=== PATIENT | female | born 1990 | race Caucasian/White ===

== ENCOUNTER 2025-06-12 11:32 | Outpatient (AMB) | payer BC, SELFPAY ==
--- NOTE | 2025-06-12 11:34 | A.OFFPC_ITS ---
Vital Signs 06/12/25 11:40 Height 5 ft 3 in Weight 115 lb 4 oz BMI 20.4 BP 102/66 Blood Pressure Location Lt brachial Position Sitting Respiration 12 Pulse 62 Pulse Source Pulse Oximeter Temp 97.2 F Temp Source Oral Pulse Oximetry (%) 98 Oxygen Delivery Method Room Air Intake Visit Reasons: Cyst right shoulder Intake Note: New patient to establish care. Patient c/o cyst on right shoulder x 3 times. Bill Collector Required: No Allergies No Known Allergies Allergy (Verified 06/12/25 11:35) Medication List - Last Reviewed 06/12/25 by Randy Huddleston MA norethindrone-e.estradiol-iron 1 mg-20 mcg (21)/75 mg (7) (10/02 ()) 1 tab PO DAILY Tobacco use date assessed: 06/12/25 Dental Screening Dental Screen Date: 06/12/25 Did you have a dental visit in the last 12 months?: Yes Did you have a dental problem in the last 6 months where you did not have access to dental care?: No Was dental information given to patient?: Patient has dentist HPI HPI Comments History of Present Illness Details 35 y/o F with palpitations, fhx of breas t ca Social: Dtr Mary (18mo), lives w/ , 2 cats. 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 MGM breast ca postmenopausal; PGM alzheimers; PGF ; Health Maintenance Tdap 2023 Flu 06/12/25 Pap [facility] History of Present Illness The patient is a 35 year old female presenting with establishment of care and for CPE. No records; no pcp care in years Supraventricular Tachycardia (SVT): - Palpitations noted during . - Occasional episodes cont, self limitin g. - EKG done; suspected lifelong SVT. Was tx as exercise induced asthma. Denies syncope or collapse. Monitors HR w smart watch. - No systematic follow-up; cost concerns for care management cyst R shoulder - Hard, enlarging neck lump (3-month dur ation). - Family history non-cancerous cyst in s ister. Past Surgical History - Section Family History - Father with hypertension. - Mother with high cholesterol. - Paternal grandmother had Alzheimer's d isease. - Maternal grandmother had breast cancer due to hormone therapy, non-hereditary. - Maternal grandfather had cancer (locat ion unspecified). Social History - Lives with and father, one truong vega (98-oyjzv-ums daughter). 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 - Daughter stays with maternal grandpare nts in [place] during work trips. - Safe home environment; owns two cats. - No significant family medical history from sibling Review of Systems - Cardiovascular: Reports occasional pal pitations. - Respiratory: Denies current asthma sym ptoms. - Dermatology: Reports cyst on neck, no discharge or pain. - General: Denies feeling faint or weak. - Immunizations: Received Tdap; flu shot administered today. Physical Exam General: Well developed, well nourished, in no acute distress. Appears stated age. Head: Normocephalic, atraumatic. Eyes: Pupils are equal, round and reactive to light and accommodation. Conjunctivae are clear. Scleras nonicteric bilat. Vision grossly normal. Ears: TMs clear AU, EACS WNL Nose: Patent, without discharge. Neck: No carotid bruit bilat. Supple, no adenopathy or thyromegaly. A dermoid cyst noted R posterior shoulder Breast: Edu on SBE Lungs: Clear to auscultation bilaterally. No rales, rhonchi or wheeze noted. Good air flow in all baltazar. Heart: Regular rate and rhythm. No murmurs, click, rubs or gallops are noted. Abdomen: Bowel sounds present in all quadrants. The abdomen is soft, nontender, with no masses or organomegaly noted. No hernias are noted. : Deferred. 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 Extremities: No clubbing, cyanosis nor edema is noted. Neurologic: Gait and station normal. Cranial Nerves 2-12 intact. Motor strength grossly symmetrical and intact. No sensory loss. Balance normal. Skin: No rashes, ulcers, or lesions noted. Turgor is good. Skin color is good. Hair and nails are without abnormalities. Psych: Normal eye contact, affect and mood appropriate, and normal interactions. Patient is alert and appropriate to context. Results Pending Discussion Notes Patient and I discussed the occasional palpitations suggestive of Supraventricular Tachycardia (SVT) which had been suspected during her following an EKG. We considered the burden of SVT and potential interventions, weighing the necessity of Holter monitoring and echocardiography to investigate the electrical and structural cardiac findings. We also discussed her concerns about the cost and affordability of these diagnostics and explored options of utilizing insurance or dispatch associate referrals. For the dermoid cyst on her neck, we discussed the benign nature of the cyst and the benefits of surgical excision before it enlarges further. Information on how to engage through the patient portal was provided, facilitating streamlined communication for any follow-up concerns. Consent was verbally obtained for both the flu vaccine and potential diagnostics. Patient was given time to ask questions. All questions were answered to their satisfaction. Assessment and Plan 1. Supraventricular Tachycardia (SVT) - defer Holter monitor d/t cost- use [employer] rt watch; echocardiography based on cost assessment. - if too costly, send message and i will cancel and refer to cards. - check labs 2. Dermoid cyst - Refer for surgical removal; monitor cy st until surgery. 3 HM: flu shot and labs Patient Instructions - Follow up with insurance for coverage on Holter monitor and echocardiogram. - Contact office via the [facility] portal if testing is cost-prohibitive. - Schedule and attend general surgery co nsultation for cyst removal. - Return for labs if unable to complete today. - Continue usual activities but track an y palpitations or unusual symptoms. - Use portal for any non-urgent communic ation with our office. - RTO 1 year CPE, sooner as needed. Consent Patient was informed and verbally consented to the use of an ambient scribe for clinic note documentation during this visit. An additional 20 minutes was spent addressing the problem(s) noted at todays visit. This includes time spent before the visit reviewing the chart, time spent during the visit, and time spent after the visit on documentation reviewing laboratory results, diagnostic imaging, medications, performing a medically necessary evaluation, counseling on diagnoses, care coordination, ordering appropriate tests, ordering appropriate medications, review of tests performed by other providers, reporting test results with the patient, communication with other healthcare providers. [facility] Medical History (Updated 06/12/25 @ 12:16 by STEPHON Fuller) Palpitations Surgical History (Updated 06/12/25 @ 11:43 by Randy Huddleston MA) Previous section Family History (Updated 06/12/25 @ 11:45 by Randy Huddleston MA) Father HTN (hypertension) Social History (Updated 06/12/25 @ 11:42 by Randy Huddleston MA) Household Members: Spouse and Children Both parents involved: No Caregiver staying overnight: No Housing: House Are you a primary attending ambulatory care to a significant other at home: Yes Do you presently have visiting nurse or other home services: No 75 years or older and lives alone: No Alcohol intake: current Alcohol intake frequency: a few times a month Patient Tobacco Use Status: Never used Tobacco e-Cigarette/Vaping Use: Never Used Second Hand Smoke Exposure: No service: No Current occupational status: employed 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 1. Little interest or pleasure in doing things: not at all 2. Feeling down, depressed, or hopeless: not at all 3. Trouble falling or staying asleep, or sleeping too much: not at all 4. Feeling tired or having little energy: not at all 5. Poor appetite or overeating: not at all 6. Feeling bad about yourself - or that you are a failure or have let yourself or your family down: not at all 7. Trouble concentrating on things, such as reading the newspaper or watching television: not at all 8. Moving or speaking so slowly that other people could have noticed. Or the opposite - being so fidgety or restless that you have been moving around a lot more than usual: not at all 9. Thoughts that you would be better off or of hurting yourself in some way: not at all Total score: 0 Depression Screening Interpretation: Negative Depression Screening Done: Yes 70014 - PHQ-9 Billing: Yes Source: Developed by Drs. Jayce Gamboa, Corry Odonnell, Kleber Hamilton and colleagues, with an educational perico from [employer]. Thrive Questionnaire Date Thrive assessed: 06/12/25 I am a: Patient What is your living situation today?: I have a steady place to live Within the past 12 months, did the food you bought not last and you didn't have the money to get more?: Never true Within the past 12 months, did you worry whether your food would run out before you got money to buy more?: Never true Do you have trouble paying for medicines?: No Do you have trouble getting transportation to medical appointments?: No Do you have trouble paying your heating and electricity bill?: No Do you have trouble taking care of your child, family member or friend?: No Do you have trouble with day-to-day activities such as bathing, preparing meals, shopping, managing finances, etc.?: No Are you currently unemployed and looking for a job?: No Are you interested in more education?: No Please select the resources that you would like help with: None Currently or been in a relationship where the following occur: No concerns reported THRIVE Score: 0 AUDIT C Alcohol Use Questionnaire (AUDIT-C) 1. How often do you have a drink containing alcohol?: 2-4 times a month 2. How many drinks containing alcohol do you have on a typical day when you are drinking?: 1 or 2 3. How often do you have six or more drinks on one occasion?: Less than monthly Total Score: 3 Score Reviewed/Action Taken: Yes MINNA-7 AMB Questionnaire MINNA-7 Date MINNA - 7 assessed: 06/12/25 Feeling nervous, anxious, or on edge: 1 = Several days Not being able to stop or control worryin = Several days Worrying too much about different things: 0 = Not at all Trouble relaxin = Not at all Being so restless that it is hard to sit still: 0 = Not at all Becoming easily annoyed or irritable: 0 = Not at all Feeling afraid as if something awful might happen: 0 = Not at all Total MINNA-7 score (0-4 normal; 5-9 mild; 10-14 moderate; 15-21 severe): 2 Source: Developed by Drs. Jayce Gamboa, Corry Odonnell, Kleber Hamilton and colleagues, with an educational perico from [employer]. MINNA-7 Assessment Billing MINNA-7 Assessment Tool: MINNA-7 Assessment 32212 Physical exam (Primary Care) Vital Signs: Last Vital Signs Temp 97.2 F 06/12/25 11:40 Pulse 62 06/12/25 11:40 Resp 12 06/12/25 11:40 BP 102/66 06/12/25 11:40 Pulse Ox 98 06/12/25 11:40 Oxygen Delivery Method Room Air 06/12/25 11:40 BMI result Body Mass Index 20.4 Tobacco/Smoking Status: Tobacco use Status Tobacco use date assessed 06/12/25 06/12/25 11:38 Patient Tobacco Use Status Never used Tobacco 06/12/25 11:42 e-Cigarette/Vaping Use Never Used 06/12/25 11:42 PHQ-9: PHQ-9 Score PHQ-9: Total score 0 06/12/25 12:00 Depression Screening Interpretation: Negative Thrive Assessment: Date of Thrive Assessment Date Thrive assessed 06/12/25 06/12/25 11:38 Currently or been in a relationship where the following occur: No concerns reported Office Procedures Flu Questionnaire Does the patient have a severe egg allergy?: No Does the patient have severe life threatening allergies?: No Does the patient have a fever or illness today?: No Has the patient ever had Guillain-[place] Syndrome?: No Has the patient ever had any past reaction to a flu shot?: No Immunizations Fluarix [id number] (PF) 45 mcg (15 mcg x 3)/0.5 mL IM syringe Performing Provider: STEPHON Fuller Performing Location: [facility] Administered by: Randy Huddleston MA on 06/12/25 12:23 Dose Route Admin Location Dispensed Lot Number Expiration Date NDC [employer] 0.5 mL IM Right Deltoid 0.5 mL [id number] 03/12/26 [id number] [employer]SM[employer] VIS Given Date VIS Provided VIS Publication Date 06/12/25 Single Vaccine 24 Eligibility Eligibility Date Funding Source Not [facility] Eligible 06/12/25 Private Coding Level of Care Code New Pt Level 2 (20636) New Pt Prev Care 18-39yr(53706 Diagnoses Encounter to establish care with new provider Z76.89 Palpitations R00.2 Laboratory exam ordered as part of routine general medical examination Z00.00 Epidermoid cyst of skin of back L72.0 Influenza vaccination administered at current visit Z23 Encounter for general adult medical examination without abnormal findings Z00.00 Additional Codes MINNA-7 Assessment Billing - MINNA-7 Assessment Tool: MINNA-7 Assessment 85747 ([id number]) PHQ-9 - 44946 - PHQ-9 Billing: Yes ([id number]) Assessment & Plan Assessment & Plan (1) Encounter to establish care with new provider: Code(s): Z76.89 - Persons encountering health services in other specified circumstances (2) Palpitations: Code(s): R00.2 - Palpitations Category: Medical (3) Laboratory exam ordered as part of routine general medical examination: Code(s): Z00.00 - Encounter for general adult medical examination without abnormal findings Category: Medical (4) Epidermoid cyst of skin of back: Code(s): L72.0 - Epidermal cyst Category: Medical (5) Influenza vaccination administered at current visit: Code(s): Z23 - Encounter for immunization Category: Medical (6) Encounter for general adult medical examination without abnormal findings: Code(s): Z00.00 - Encounter for general adult medical examination without abnormal findings Category: Medical Plan . Orders: Orders CA echo transthoracic complete Today R00.2 - Palpitations Complete Blood Count no Diff Today R00.2 - Palpitations, Z00.00 - Encounter for general adult medical examination without abnormal findings Comprehensive Met. Panel Today R00.2 - Palpitations, Z00.00 - Encounter for general adult medical examination without abnormal findings Hemoglobin A1c Today R00.2 - Palpitations, Z00.00 - Encounter for general adult medical examination without abnormal findings Lipid Panel Today R00.2 - Palpitations, Z00.00 - Encounter for general adult medical examination without abnormal findings Vitamin D 25-OH Total Today R00.2 - Palpitations, Z00.00 - Encounter for general adult medical examination without abnormal findings TSH reflex Free T4 Today R00.2 - Palpitations, Z00.00 - Encounter for general adult medical examination without abnormal findings Vitamin B12 and Folate Today R00.2 - Palpitations, Z00.00 - Encounter for general adult medical examination without abnormal findings Influenza [id number] Immunization Today Z23 - Encounter for immunization Referrals General Surgery Referral L72.0 - Epidermal cyst Patient Instructions: Walk-In Care (Urgent Care): We Make it Easy Walk-in for urgent medical issues such as: ? Seasonal Allergies ? Insect Bites ? Cough ? Diarrhea ? Acute Asthma Attacks ? Back, Knee or Joint Pain ? Ear Infection ? Fever without a Rash ? Headaches ? Nausea ? [place] Eye, Rash or Skin Irritation ? Sore Throat ? Sports Physicals ? Vomiting Most insurances are accepted. Patients do not need to be part of the [facility] to seek care at the walk-in clinic. Locations [address] [place] [address] Open Wednesday through Wednesday 8am-5pm *Hours may vary due to staffing availability. To confirm Walk-In Care hours please call. [address] [place] [address] ? [phone] [facility] [place] provides services to ages 18 and over. Open Wednesday-Wednesday: 7 a.m. to 5 p.m. and Wednesday: 9 a.m. to 3 p.m.* *Hours may vary due to staffing availability. To confirm Walk-In Care hours in [place], please call [phone]. [address] [place] [address] ? [phone] [facility] [place] provides services to ages 12 and over. Open Wednesday-Wednesday: 8 a.m. to 5 p.m. Hours may vary due to staffing availability. To confirm Walk-In Care hours in [place], please call [phone]. LABORATORY SERVICES: [facility] ? Primary Location [address] [place] [address] Wednesday through Wednesday 6:00 AM ? 5:00 PM Wednesday 7:00 AM ? 11:00 AM* [phone] The [facility] is centrally located near the front entrance of the [facility] for easy outpatient access. Convenient parking is provided for outpatients. *Hours may vary due to staffing availability. To confirm Laboratory hours for any location, please call [phone]. Offsite Location For your convenience, we offer offsite laboratory draw stations at the following locations: [address] [place] [address] ? [facility] [address], [address] Wednesday through Wednesday 7:30 AM ? 1:00 PM* [phone] *Hours may vary due to staffing availability. To confirm Laboratory hours for any location, please call [phone]. [place] ? [address] Wednesday through Wednesday 6:00 AM ? 3:30 PM* Wednesday 6:30 AM ? 3 PM* [phone] *Hours may vary due to staffing availability. To confirm Laboratory hours for any location, please call [phone]. [address] [facility] Wednesday through Wednesday 7:30 AM ? 4:00 PM* [phone] *Hours may vary due to staffing availability. To confirm Laboratory hours for any location, please call [phone] [place] [address] Wednesday through 9:00 AM ? 4:00 PM* *Hours may vary due to staffing availability. To confirm Laboratory hours for any location, please call [phone]. Appointments are not necessary. Walk-ins are welcome. Like all the departments throughout the [facility], our Lab undergoes frequent reviews to ensure the quality and accuracy of test results, and our staff takes special pride in its status as a nationally accredited facility. Patient Portal: [facility] ONE PATIENT. ONE RECORD. BETTER CARE. [facility] has a fully integrated, cutting- edge mobile electronic health information system that has revolutionized the way we care for our patients and manage our organization. This system improves communication and coordination enabling us to provide safe, higher-quality care, and an overall positive experience for staff and patients. Our first priority, as always, is to deliver the highest quality care possible. The system is running in the background supporting that priority. This portal is for all [facility] and [facility] services and practices. If you are experiencing any technical difficulties with enrolling or logging into the Patient Portal please complete the [facility] Patient Portal Technical Support Form. [facility] now offers a new secure on-line interactive tool for patients to review their health information ? ?Patient Portal. This interactive web portal will enable patients and their families to take an active role in their care by providing easy, secure access to their health information via the internet. The Patient Portal provides patients with instant access to their health information, including laboratory results, medications, allergies, demographic information, visit history, and more. In addition to managing their own care, parents and health care proxies with authorized consent will appreciate the ability to access the records of those individuals for whom they provide care. Please note: if you wish to gain access (Proxy) to another patient?s portal, you will be required to come to the Medical Records Department in person at [facility]. Both the patient giving proxy access and the proxy will need to provide photo identification and complete the appropriate authorization. The Patient Portal also allows track their appointments online. The [facility] Patient Portal also saves patients time by allowing them to submit updates to their demographic and contact information prior to their visits. Portal email notifications will also alert patients to any new activity on their portal, such as test results and new appointments. In order to initially enroll in the [facility] Patient Portal, you will need to enter some required information including the following: * your [facility] Medical Record number * your personal home email address * name * date of Please note: In order to enroll in the [facility] Patient Portal, we need to have your email address on file in your electronic medical record. ?The email address needs to be specific for one person (yourself) in order for your Portal enrollment to be successful. ?You can update your email address in person with our Registration staff when you are registering for a hospital visit. ?Otherwise, you will need to come to the Health Information Management (Medical Records) Department at [facility]. ?We are open from Wednesday ? Wednesday from 7:30 a.m. ? 4:30 p.m. ?You will be required to present a photo id. Once you have successfully enrolled in the Patient Portal, you will receive a one-time user id and password for the Portal, sent to your email address. ?This will allow you to log into the Patient Portal within 99 hrs and reset your own logon id and password, and define personal security questions. ?Once your p ermanent login and password have been set, you can log into the [facility] Patient Portal at any time via the blue button above or from the Portal Logon button on any page of the [facility] website. [facility] and [facility] encourage all of our patients to enroll in Patient Portal as it presents a valuable opportunity for patients and their families to actively participate in their care and stay healthy Welcome to [facility]. ?We look forward to working with you. Health screenings for women You should visit your health care provider from time to time, even if you are healthy. The purpose of these visits is to: Screen for medical issues Assess your risk for future medical problems Encourage a healthy lifestyle Update vaccinations and other preventive care services Help you get to know your provider in case of an illness Information Even if you feel fine, you should still see your provider for regular checkups. These visits can help you avoid problems in the future. For example, the only way to find out if you have high blood pressure is to have it checked regularly. High blood sugar and high cholesterol levels also may not have any symptoms in the early stages. A simple blood test can check for these conditions. There are specific times when you should see your provider or receive specific health screenings. The [place] Preventive Services Task Force publishes a list of recommended screenings. Below are screening guidelines for women ages 18 to 39. BLOOD PRESSURE SCREENING Your blood pressure should be checked at least once every 3 to 5 years if: Your blood pressure is in the normal range (top number less than 120 mm Hg and bottom number less than 80 mm Hg) You don't have risk factors for high blood pressure Ask your provider if you need your blood pressure checked more often if: The top number is 120 to 129 mm Hg or the bottom number is 70 to 79 mm Hg You have diabetes, heart disease, kidney problems, are overweight, or have certain other health conditions You have a first-degree relative with high blood pressure You are Black You had high blood pressure during a If the top number is 130 mm Hg or greater or the bottom number is 80 mm Hg or greater, this is considered stage 1 hypertension. Schedule an appointment with your provider to learn how you can reduce your blood pressure. Watch for blood pressure screenings in your area. Ask your provider if you can stop in to have your blood pressure checked. BREAST CANCER SCREENING Experts do not agree about the benefits of breast self-exams in finding breast cancer or saving lives. Talk to your provider about what is best for you. A screening mammogram is not recommended for most women under age 40. Your provider may discuss and recommend mammograms, MRI scans, or ultrasounds if you have an increased risk for breast cancer, such as: A mother or sister who had breast cancer at a young age (most often starting screening earlier than the age the close relative was diagnosed) You carry a high-risk genetic marker CERVICAL CANCER SCREENING Cervical cancer screening should start at age 21 years unless your provider advises otherwise. After the first test: Women ages 21 through 29 should have a Pap test every 3 years. Exoprts do not agree on whether HPV testing is recommended for this age group. Women ages 30 through 65 should be screened with either a Pap test every 3 years or the HPV test every 5 years or both tests every 5 years (called cotesting ). Women who have been treated for precancer (cervical dysplasia) should continue to have Pap tests for 20 years after treatment or until age 65, whichever is longer. If you have had your uterus and cervix removed (total hysterectomy), and you have not been diagnosed with cervical cancer or precancer (high grade cervical neoplasia), you do not need cervical cancer screening. CHOLESTEROL SCREENING Cholesterol screening should begin at: Age 45 for women with no known risk factors for coronary heart disease Age 20 for women with known risk factors for coronary heart disease Repeat cholesterol screening should take place: Every 5 years for women with normal cholesterol levels More often if changes occur in lifestyle (including weight gain and diet) More often if you have diabetes, heart disease, kidney problems, or certain other conditions DIABETES SCREENING You should be screened for diabetes starting at age 35 and then repeated every 3 years if you have no risk factors for diabetes. Screening may need to start earlier and be repeated more often if you have other risk factors for diabetes, such as: You have a first degree relative with diabetes. You are overweight or have obesity. You have high blood pressure, prediabetes, or a history of heart disease. Screening for diabetes should be done if you are planning to become and you are overweight and have other risk factors such as high blood pressure. DENTAL EXAM Go to the dentist once or twice every year for an exam and cleaning. Your dentist will evaluate if you need more frequent visits. EYE EXAM Have an eye exam every 5 to 10 years before age 40. If you have vision problems, have an eye exam every 2 years or more often if recommended by your provider. You should have an eye exam that includes an examination of your retina (back of your eye) at least every year if you have diabetes. IMMUNIZATIONS Commonly needed vaccines include: Flu shot: get one every year. COVID-19 vaccine: ask your provider what is best for you. Tetanus-diphtheria and acellular pertussis (Tdap) vaccine: have one at or after age 19 as one of your tetanus-diphtheria vaccines if you did not receive it as an adolescent. Tetanus-diphtheria: have a booster (or Tdap) every 10 years. Varicella vaccine: receive 2 doses if you never had chickenpox or the varicella vaccine. Hepatitis B vaccine: receive 2, 3, or 4 doses, depending on your exact circumstances. Measles, mumps, and rubella (MMR) vaccine: receive 1 to 2 doses if you are not already immune to MMR. Your provider can tell you if you are immune. Ask your provider about the human papillomavirus (HPV) vaccine if: You have not received the HPV vaccine in the past You have not completed the full vaccine series (you should catch up on this shot) Ask your provider if you should receive other immunizations if you have certain health problems that increase your risk for some diseases such as pneumonia. INFECTIOUS DISEASE SCREENING Women who are sexually active should be screened for chlamydia and gonorrhea up until age 25. Women 25 years and older should be screened for chlamydia and gonorrhea if at high risk. Screening for hepatitis C: All adults ages 18 to 79 should get a one-time test for hepatitis C. people should be screened at every . Screening for human immunodeficiency virus (HIV): All people ages 15 to 65 should get a one-time test for HIV. Depending on your lifestyle and medical history, you may also need to be screened for infections such as syphilis and HIV, as well as other infections. PHYSICAL EXAM All adults should visit their provider from time to time, even if they are healthy. The purpose of these visits is to: Screen for disease Assess your risk of future medical problems Encourage a healthy lifestyle Update your vaccinations and other preventive care services Maintain a relationship with a provider in case of an illness Your height, weight, and BMI should be checked at every exam. During your exam, your provider may ask you about: Depression and anxiety Diet and exercise Alcohol and tobacco use Safety issues, such as using seat belts, smoke detectors, and intimate partner violence Your medicines and risk for interactions SKIN SELF-EXAM Your provider may check your skin for signs of skin cancer, especially if you're at high risk, such as if you: Have had skin cancer before Have close relatives with skin cancer Have a weakened immune system OTHER SCREENING Talk with your provider about colon cancer screening if you have a strong family history of colon cancer or polyps, or if you have had inflammatory bowel disease or polyps yourself. Routine bone density screening of women under 40 is not recommended.
[2025-06-12 11:40] VITALS: BP 102/66; PULSE 62; RESP 12; TEMP 36.2; O2SAT 98; BMI 20.4
--- OUTSIDE RECORDS SUMMARY | 2025-06-12 12:59 | XMS_ITS | Clinical Summary ---
Author Organization [facility] ity Address [address] [place] [address] Care Team Providers Care Customer Service Consultant Name Role Phone Akilah Hannah MD Primary Care Pr ovider Allergies No known active allergies Medications ibuprofen (ADVIL,MOTRIN) 600 mg tablet Take 1 Tablet by mouth every 6 hours as needed for Pain for up to 30 days. 4 Active magnesium glycinate 100 mg magnesium capsule Take by mouth. Active vit no.124/iron/folic ( VITAMIN ORAL) Take 1 Tablet by mouth daily. Active aspirin 81 mg chewable tablet Take 1 Tablet by mouth daily for 360 days. 3 Active Junel FE 10/02, 28, 1 mg-20 mcg (21)/75 mg (7) per tabletIndications: Encounter for surveillance of contraceptive pills TAKE 1 TABLET BY MOUTH EVERY DAY 84 tablet 2 5 Active Immunizations Immunization Administration Dates Next Due HPV, Quadrivalent 02/17/2008,10/17/2007,08/11/20 07 Influenza Quadravalent, MDCK , 0.5ml, preservative free (Flucelvax) 6mo and older 07/08/2023 Influenza trivalent, 0.5mL, preservative free (Fluarix; FluLaval; Fluzone) ages 6mo and older (Afluria) 3 years and older 08/11/2007 [facility] SARS-CoV-2 COVID -19, vector-nr, rS-Ad26, preservative free 08/27/2021,01/01/2021 Meningococcal MCV4P 08/04/2006 Tdap Tetanus diptheria acell ular pertussis (Boostrix; Adacel) 7yo and older 11/26/2023,08/11/2007 Surgical History Surgery Date Site/Laterality Comments OTHER SURGICAL HISTORY PROCEDURE: DENIES PREVIOUS SURGERY Medical History Medical History Date Comments Patient denies medical problems DX:Patient denies medical problems Family History Medical History Relation Name Comments Hypertension Father Breast cancer Maternal Grandmother BRCA n eg, dx after 60, COPD Colon cancer Neg Hx Ovarian cancer Neg Hx Pancreatic cancer Neg Hx Uterine cancer Neg Hx Relation Name Status Comments Father Alive Maternal Grandfather Maternal Grandmother Mother Alive Paternal Grandfather Paternal Grandmother Sister Alive Social History Tobacco Use Types Packs/Day Years Used Date Smoking Tobacco: Never Smokeless Tobacco: Never Alcohol Use Standard Drinks/Week Comments Not Currently 0 (1 standard drink = 0.6 oz pur e alcohol) Comments Unknown Sex and Gender Information Value Date Recorded Sex Assigned at Not on file Legal Sex Female 1:08 PM EST Gender Identity Not on file Sexual Orientation Not on file Obstetrics History Last Filed Vital Signs Vital Sign Reading Time Taken Comments Blood Pressure 113/64 02/29/2024 8:40 AM EDT Pulse 56 02/29/2024 8:40 AM EDT Temperature - - Respiratory Rate - - Oxygen Saturation - - Inhaled Oxygen Concentration - - Weight 59.3 kg (130 lb 12.8 oz) 02/29/2024 8:40 AM EDT Height 160 cm (5' 3 ) 12/29/2023 1:05 PM EDT Body Mass Index 23.17 12/29/2023 1:05 PM EDT Plan of Treatment Health Maintenance Due Date Last Done Comments Hepatitis B Vaccines (1 of 3 - 19+ 3-dose series) 01/17/2011 Social Influencers of Health Screening 08/22/2022 Depression Screening 09/13/2024 COVID-19 Vaccine (3 - 2024-2 6 season) 2025 08/27/2021, 01/01/2021 Influenza Vaccine (#1) 2025 , 08/11/2007 Cholesterol Screening (Lipid Panel) 10/17/2026 10/17/2021 Cervical Cancer Screening: HPV 03/06/2027 03/06/2022 DTaP,Tdap,and Td Vaccines (3 - Td or Tdap) 11/25/2033 11/26/2023, 08/11/2007 RSV Immunization Adult Patients (1 - 1-dose 75+ series) 01/17/2067 Meningococcal ACWY Vaccine Aged Out 08/04/2006 N o longer eligible based on patient's age to complete this topic HPV Vaccines Completed 02/17/2008, 10/17/2007, 08/11/2007 HIV Screening Completed 06/24/2023 Hepatitis C Screening Completed 06/24/2023 HIB Vaccines Aged Out No longer eligi ble based on patient's age to complete this topic Hepatitis A Vaccines Aged Out No long er eligible based on patient's age to complete this topic IPV Vaccines Aged Out No longer eligi ble based on patient's age to complete this topic MMR Vaccines Aged Out No longer eligi ble based on patient's age to complete this topic Meningococcal B Vaccine Aged Out No l onger eligible based on patient's age to complete this topic Pneumococcal Vaccine: Pediatrics (0 to 5 Years) and At-Risk Patients (6 to 49 Years) Aged Out No longer eligible b ased on patient's age to complete this topic RSV Immunization Patients Under 20 months Aged Out No longer eligible b ased on patient's age to complete this topic Varicella Vaccines Aged Out No longer eligible based on patient's age to complete this topic Procedures Procedure Name Priority Date/Time Associated Diagnosis Comments HEPATITIS C SCREENING Routine 06/24/2023 HIV SCREENING Routine 06/24/2023 HPV Routine 03/06/2022 LIPID PANEL Routine 10/17/2021 from Last 3 Months or Most Recently Relevant to Health Maintenance Results * HIV Screening (06/24/2023) HIV Screening abstracted us Historical Provider HEALTH MAINTENANCE Final Result * Hepatitis C Screening (06/24/2023) Hepatitis C Screening abstracted us Historical Provider HEALTH MAINTENANCE Final Result * Cervical Cancer Screening: HPV (03/06/2022) Cervical Cancer Screening: HPV negative, abstracted Historical Provider HEALTH MAINTENANCE Final Result * (ABNORMAL) Lipid panel (10/17/2021) LDL/HDL Ratio 4 0 - 4 Triglycerides 78 0 - 150 mg/dL Cholesterol 142 0 - 200 mg/dL HDL 39(A) >=40 mg/dL LDL Cholesterol 88 0 - 100 mg/dL Blood Venous blood specimen / Unknown Historical Provider LAB BLOOD ORDERABLES Arabella l Result from Last 3 Months or Most Recently Relevant to Health Maintenance Care Teams Customer Service Consultant Relationship Specialty Start Date End Date Akilah Hannah MD PCP - General 08/04/23
== END 2025-06-12 12:25 | disposition home or self-care (01) ==
LOC: HO.HMCFM 11:33
PROVIDERS: PCP Nurse Practitioner Family; Visit Provider Nurse Practitioner Family
DX: Z00.00 Encounter for general adult medical examination without abnormal findings (principal); R00.2 Palpitations; L72.0 Epidermal cyst; Z23 Encounter for immunization

== ENCOUNTER → 2025-06-12 11:32 | Outpatient (BNVA) | payer BC, SELFPAY | PROVIDERS: PCP Nurse Practitioner Family; Visit Provider Nurse Practitioner Family | DX: Z00.00 Encounter for general adult medical examination without abnormal findings (principal); I47.10 Supraventricular tachycardia, unspecified; D36.9 Benign neoplasm, unspecified site; R00.2 Palpitations; L72.0 Epidermal cyst; Z23 Encounter for immunization; Z76.89 Persons encountering health services in other specified circumstances | CPT/HCPCS: 90471; 90656; 96127 ==

== ENCOUNTER 2025-07-17 11:08 | Outpatient (AMB) | payer BC, SELFPAY ==
--- NOTE | 2025-07-17 11:21 | MHC.OFFVIS ---
Vital Signs 07/17/25 11:23 Height 5 ft 3 in Weight 120 lb BMI 21.3 BP 136/58 L Blood Pressure Location Rt brachial Position Sitting Pulse 69 Intake Visit Reasons: epidermal cyst Intake Note: Patient referred by pcp Lidia Sutherland for evaluation of cyst on Rt posterior shoulder. Present for 6mo. Patient c/o: site enlarging. Denies pain, oozing. No prior hx of trauma. Process Development Chemist Required: No Accompanied by: baby daughter Allergies No Known Allergies Allergy (Verified 07/17/25 11:29) Medication List - Last Reconciled 07/17/25 by Scott Moore MD norethindrone-e.estradiol-iron 1 mg-20 mcg (21)/75 mg (7) (10/02 (28)) 1 tab PO DAILY HPI Comments Details: 35-year-old female patient presenting with a epidermal inclusion cyst of the right posterior shoulder. This has been gradually increasing in size. She denies a history of infection, discharge, pain, or other associated symptoms. He is requesting excision of this lesion. [facility] Medical History Palpitations Surgical History Previous section Family History Father HTN (hypertension) Social History Household Members: Spouse and Children Both parents involved: No Caregiver staying overnight: No Housing: House Are you a primary critical care nurse to a significant other at home: Yes Do you presently have visiting nurse or other home services: No 75 years or older and lives alone: No Alcohol intake: current Alcohol intake frequency: a few times a month Patient Tobacco Use Status: Never used Tobacco e-Cigarette/Vaping Use: Never Used Second Hand Smoke Exposure: No service: No Current occupational status: employed 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 Cognitive needs: No Hearing needs: No Vision needs: No Review of Systems Const All systems reviewed & are unremarkable except as noted in HPI and below Physical Exam Vital Signs: Last Vital Signs Pulse 69 07/17/25 11:23 BP 136/58 L 07/17/25 11:23 BMI result Body Mass Index 21.3 Const General: cooperative and no acute distress Nutritional Appearance: well nourished Orientation/consciousness: patient oriented x3 Limitations: no limitations HEENT Head: Yes normocephalic and Yes atraumatic Ears: hearing grossly normal bilaterally Resp Effort & Inspection: normal respiratory effort, no audible wheezes, no cough and no respiratory distress Cardio Jugular venous distension: no JVD GI Inspection: Yes normal to inspection Back/Spine/Pelvis Back/spine/pelvis image:  1. 0.5 cm epidermal inclusion cyst right posterior shoulder, noninfected, nontender. Skin Other: Warm, dry, no rash Neuro General: patient oriented x3 Extrem General: Yes no clubbing, cyanosis or edema Assessment & Plan Assessment & Plan (1) Epidermoid cyst of skin of back: Code(s): L72.0 - Epidermal cyst Category: Medical Plan 35-year-old female presenting with a gradually enlarging epidermal inclusion cyst of the right posterior shoulder. She has requested excision. I recommended an excision under local anesthesia under local and after discussion of the procedure, risks, and alternatives, she consents to the surgery. She will be scheduled for an office visit for excision. Coding Level of Care Code New Pt Level 4 (93504) Diagnoses Epidermoid cyst of skin of back L72.0
[2025-07-17 11:23] VITALS: BP 136/58; PULSE 69; BMI 21.3
--- OUTSIDE RECORDS SUMMARY | 2025-07-17 13:36 | XMS_ITS | Data Portability ---
Author Organization [place] - [facility] [address] Address [address] [place] [address] Assessment Encounter Date Assessment Date Assessment LastModified by Organization Details LastModified Time 03/01/2024 03/01/2024 duplicate chart [email or web address] Not available 03/01/2024 14:52:39 Plan of Treatment Reminders Order Date Submit Date Provider Last Modified By Organization Details Last Modified Time Details Appointments None recorded. Lab None recorded. Referral None recorded. Procedures cerumen removal using irrigation (PROC) 2023 024 acardinal 3 Not available 4 18:38:56 Surgeries None recorded. Imaging None recorded. Medication Orders None recorded. Patient TargetsNo targets recorded. Patient InstructionsNo instructions recorded. Reason for Referral None Reported. Problems Name Problem SNOMED Code Status Onset Date Resolution Date Notes Provider Name and Address Organization Details Recorded Time Impacted cerumen in right ear 927253569726852 3 Active 2023 Casey Corado DO [address] [place], [address], [place] - [facility] 4 12:03:49 Impacted cerumen in left ear 122950858164344 1 Active 2023 Casey Corado DO [address] [place], [address], [place] [facility] 4 14:52:48 Problem Notes None recorded. Procedures Surgical History Date Name Laterality Status Provider Name and Address Organization Details Recorded Time 4 Cerumen Removal by Irrigation completed Ary SCANLON - [facility] 03/01/2024 12:07:30 delivery completed Ary SCANLON - [facility] 03/01/2024 11:46:53 Imaging Results None recorded. Procedure Notes None recorded. Medical Equipment None Reported. Allergies No known drug allergies Medications Name Sig Start Date Stop Date Status Note LastModified by Organization Details LastModified Time ibuprofen 600 mg tablet TAKE 1 TABLET BY MOUTH EVERY 6 HOURS NEEDED FOR PAIN FOR UP TO 30 DAYS. active Not Available Not Available No t Available fluticasone propionate 50 mcg/actuatio n nasal spray,suspen sonay SPRAY 1 SPRAY INTO EACH NOSTRIL EVERY DAY 03/01 completed Not Available Not Available Not Available 10/02 (28) 1 mg-20 mcg (21)/75 mg (7) tablet 03/01 completed Not Available Not Available Not Available Vitals Date Recorded Body height Body mass index (BMI) Body weight Body temperature Oxygen saturation Oxygen saturation in Arterial blood by Pulse oximetry Heart rate Respiratory rate Pain severity - 0-10 verbal numeric rating [Score] - Reported Systolic And Diastolic Provider Name and Address Organization Details Last Updated DateTime 160.02 cm 23 kg/m2 19592.0 1 g 97 [degF] 96 % 96 % 64 /min 20 /min 1 117/77 mm[Hg] Ary SCANLON - [facility] 11:45:12 Social History Question Answer Notes LastModified by Expert TA Details LastModified Time Tobacco Smoking Status Never Smoker CAPO Wyatt [facility] 03/01/2024 11:46:26 What Was The Date Of Your Most Recent Tobacco Screening? 03/01/2024 Information not available 03/01/2024 What Is Your Relationship Status? Information not available 03/01/2024 Have You Recently Traveled Abroad? No Information not available 03/01/2024 Sex: Unknown Functional Status Question Answer Note LastModified by Expert TA Details LastModified Time How many times per week do you consume alcohol? Less than 1 time per week Information not available 03/01/2024 Do you use any illicit or recreational drugs? No Information not available 03/01/2024 Do you or have you ever used any other forms of tobacco or nicotine? No Information not available 03/01/2024 What is your level of alcohol consumption? Occasional Information not available 03/01/2024 Mental Status None recorded. Family History Relationship Description Onset Age of this Age Resolved Age Notes LastModified by Organization Details LastModified Time Father No current problems or disability Not available 03/01 11:46:13 Mother No current problems or disability Not available 03/01 11:46:13 Medical History No medical history recorded. Gynecological History Statement/Question Response Is there any chance of ? No Obstetrics History GPAL:G 0 P 0 0 0 0 Immunizations Vaccine Type Date Status Note Provider Nam e and Address Organization Details Recorded Time Influenza, MDCK, quadrivalent, PF 3 completed Ary Mine null, [place] - [facility] 03/01/2024 11:45:45 COVID-19 vaccine, vector-nr, rS-Ad26, PF, 0.5 mL 1 completed Ary Mine null, [place] - [facility] 03/01/2024 11:45:45 COVID-19 vaccine, vector-nr, rS-Ad26, PF, 0.5 mL 1 completed Ary Mine null, [place] [facility] 03/01/2024 11:45:45 COVID-19 vaccine, vector-nr, rS-Ad26, PF, 0.5 mL 1 completed Ary Mine null, [place] [facility] 03/01/2024 11:45:45 Tdap 4 completed Ary Mine null, [place] [facility] 03/01/2024 11:45:45 Tdap 7 completed Ary Mine null, [place] [facility] 03/01/2024 11:45:45 Influenza, split virus, trivalent, preservative 7 completed Ary Mine null, [place] [facility] 03/01/2024 11:45:45 HPV, quadrivalent 8 completed Ary Mine null, [place] [facility] 03/01/2024 11:45:45 HPV, quadrivalent 8 completed Ary Mine null, [place] [facility] 03/01/2024 11:45:45 HPV, quadrivalent 7 completed Ary Mine null, [place] [facility] 03/01/2024 11:45:45 meningococcal MCV4P 6 completed Ary Mine null, [place] [facility] 03/01/2024 11:45:45 Influenza, split virus, quadrivalent, PF 0 completed Ary Mine null, [place] [facility] 03/01/2024 11:45:45 Past Encounters Encounter ID Performer Location Encounter Start Date Encounter Closed Date Diagnosis/Indication Diagnosis SNOMED-CT Code Diagnosis ICD10 Code Diagnosis IMO Codes Diagnosis Note [id number] [facility] [address] [place] [phone] 03/30/2021 10:24:22 03/30/2021 11:15:[id number] [place], [place] [address] [address] [place] [id number] 07/03/2021 09:20:20 07/03/2021 11:19:57 [id number] Casey Corado DO [address] [place] [phone] [id number] 03/01/2024 09:43:41 03/01/2024 14:53:32 Impacted cerumen in left ear 6916027883 074862 H61.22 [facility] [id number] Casey Corado DO [address] [place] [id number] 03/01/2024 11:25:13 03/01/2024 12:08:16 Impacted cerumen in right ear [id number] H61.21 [facility] Health Concerns Section Related Observation LastModified by Organization Detai ls LastModified Time None Recorded Concern Status LastModified by Organization Details LastModified Time None Recorded Advance Directives Directive None Recorded Payers Insurance Date Sequence Insurance Name Policy Number Policy Ambrose Covered Member ID Ambrose Member ID Guarantor Name 03/01/2024 [address] [facility] [place] [id number] Zeyad Garrett Christi [id number] Kenia Poole 03/01/2024 1 [facility] [id number] Kenia Brinda Poole [id number] Kenia Poole Notes Date Note Type Note Provider Name and Address Organization Details Recorded Time 03/01/2024 text/html pt is here for ear irrigation [place], [address], [place] [facility] 03/01/2024 14:53:31 03/01/2024 text/html patient stated she has right ear blockage few days. no fevers or chills Casey Corado DO [address] [place], [address], [place] [facility] 03/01/2024 14:50:49 OBGyn Episode No OBEpisode recorded.
== END 2025-07-17 11:37 | disposition home or self-care (01) ==
LOC: HO.HGS 11:08
PROVIDERS: PCP Nurse Practitioner Family; Visit Provider Surgery
DX: L72.0 Epidermal cyst (principal)
CPT/HCPCS: 99204